=== PATIENT | male | born 1985 | race Caucasian/White ===

== ENCOUNTER 2024-01-09 10:02 | Outpatient (AMB) | payer OTHER, SELFPAY ==
--- NOTE | 2024-01-09 10:25 | A.OFFPC_ITS ---
Vital Signs 01/09/24 10:38 Height 5 ft 9 in Weight 202 lb BMI 29.8 BP 122/74 Blood Pressure Location Rt brachial Position Sitting Pulse 82 Pulse Source Pulse Oximeter Pulse Oximetry (%) 96 Oxygen Delivery Method Room Air Intake Visit Reasons: Skin peeling on forehead Intake Note: Pt is here today as a New Patient to [facility] care c/o skin peeling Allergies No Known Allergies Allergy (Verified 01/09/24 10:59) Medication List - Last Reconciled 01/09/24 by Zahra Calvillo MD No Known Home Meds Tobacco use date assessed: 01/09/24 Dental Screening Did you have a dental visit in the last 12 months?: Yes Did you have a dental problem in the last 6 months where you did not have access to dental care?: No Was dental information given to patient?: Patient has dentist HPI HPI Comments History of Present Illness Details 38-year-old male here today to establish care with new PCP and complaining of mildly pruritic rash on forehead just above the eyebrows, and in posterior scalp. He has been self treating with using saon-jzo-muxtaea head and shoulders shampoo, which he states has not helped. Has tried ketoconazole shampoo in the past which has helped but ran out . He also complains of a dry patch on his left elbow, which is nonpruritic. [facility] Medical History (Updated 01/10/24 @ 01:52 by Zahra Calvillo MD) Seborrheic dermatitis of scalp Surgical History (Updated 01/09/24 @ 11:10 by Zahra Calvillo MD) H/O vasectomy Family History (Updated 01/09/24 @ 11:09 by Zahra Calvillo MD) Maternal Grandmother Alzheimer's dementia Mother Mental health disorder Colon cancer, Onset Age: 60 Diabetes mellitus Essential hypertension Hypercholesteremia Hypothyroidism Depression Paternal Grandmother Alzheimer's dementia Father Diabetes mellitus Essential hypertension Social History Housing: House Patient Tobacco Use Status: Never used Tobacco e-Cigarette/Vaping Use: Never Used service: Yes Current occupational status: employed Cognitive needs: No Hearing needs: No Vision needs: Yes Questionnaire PHQ-9 Over the last 2 weeks, how often have you been bothered by any of the following problems? 1. Little interest or pleasure in doing things: not at all 2. Feeling down, depressed, or hopeless: not at all 3. Trouble falling or staying asleep, or sleeping too much: several days 4. Feeling tired or having little energy: several days 5. Poor appetite or overeating: not at all 6. Feeling bad about yourself - or that you are a failure or have let yourself or your family down: not at all 7. Trouble concentrating on things, such as reading the newspaper or watching television: not at all 8. Moving or speaking so slowly that other people could have noticed. Or the opposite - being so fidgety or restless that you have been moving around a lot more than usual: not at all 9. Thoughts that you would be better off or of hurting yourself in some way: not at all Total score: 2 Depression Screening Interpretation: Negative Depression Screening Done: Yes 05702 - PHQ-9 Billing: Yes Source: Developed by Drs. Robby Wisodm, Cleeste Do, Smith Davis and colleagues, with an educational jose from [employer]. Thrive Questionnaire Date Thrive assessed: 01/09/24 I am a: Patient What is your living situation today?: I have a steady place to live Within the past 12 months, did the food you bought not last and you didn't have the money to get more?: Never true Within the past 12 months, did you worry whether your food would run out before you got money to buy more?: Never true Do you have trouble paying for medicines?: No Do you have trouble getting transportation to medical appointments?: No Do you have trouble paying your heating and electricity bill?: No Do you have trouble taking care of your child, family member or friend?: No Do you have trouble with day-to-day activities such as bathing, preparing meals, shopping, managing finances, etc.?: No Are you currently unemployed and looking for a job?: No Are you interested in more education?: No THRIVE Score: 0 AUDIT C Alcohol Use Questionnaire (AUDIT-C) 1. How often do you have a drink containing alcohol?: Never Total Score: 0 JANETH-7 AMB Questionnaire JANETH-7 Date JANETH - 7 assessed: 01/09/24 Feeling nervous, anxious, or on edge: 0 = Not at all Not being able to stop or control worryin = Not at all Worrying too much about different things: 0 = Not at all Trouble relaxin = Not at all Being so restless that it is hard to sit still: 0 = Not at all Becoming easily annoyed or irritable: 0 = Not at all Feeling afraid as if something awful might happen: 0 = Not at all Total JANETH-7 score (0-4 normal; 5-9 mild; 10-14 moderate; 15-21 severe): 0 Source: Developed by Drs. Robby Wisdom, Celeste Do, Smith Davis and colleagues, with an educational jose from [employer]. JANETH-7 Assessment Billing JANETH-7 Assessment Tool: JANETH-7 Assessment 61224 Review of Systems Const Details: Alert oriented x3, no acute distress ambulatory normal gait, accompanied by Eyes Details: [facility] for his routine eye exam Reports requires corrective lenses ENT Reports no additional complaints Card Reports no additional complaints Resp Reports no additional complaints GI Reports no additional complaints Reports no additional complaints Musc Reports no additional complaints Skin/Breast Reports as per HPI Physical exam (Primary Care) Vital Signs: Last Vital Signs Pulse 82 01/09/24 10:38 BP 122/74 01/09/24 10:38 Pulse Ox 96 01/09/24 10:38 Oxygen Delivery Method Room Air 01/09/24 10:38 BMI result Body Mass Index 29.8 Tobacco/Smoking Status: Tobacco use Status Tobacco use date assessed 01/09/24 01/09/24 10:45 Patient Tobacco Use Status Never used Tobacco 01/09/24 10:45 e-Cigarette/Vaping Use Never Used 01/09/24 10:45 PHQ-9: PHQ-9 Score PHQ-9: Total score 2 01/09/24 11:11 Depression Screening Interpretation: Negative Thrive Assessment: Date of Thrive Assessment Date Thrive assessed 01/09/24 01/09/24 10:49 Advance Care Planning discussion: Completed/Scanned Date of discussion: 01/09/24 Who was present: Patient and Forms completed: Health Care Proxy Time spent: 16-45 minutes Actual minutes spent: 16 Const Other: Alert oriented x3, no acute distress noted ambulatory normal gait, present in room Orientation/consciousness: patient oriented x3 HENMT Head: Yes scalp lesion (Shiny scaly rash noted on scalp) Ears: external ears normal, TM's normal bilaterally and EAC's normal Face and sinus: Yes face symmetric Mouth: Normal oral and palatal mucosa present and moist mucous membranes Neck Neck: Yes full ROM, Yes no lymphadenopathy and Yes supple Resp Auscultation: clear to auscultation bilaterally Cardio Rate: regular rate Rhythm: regular rhythm Heart sounds: S1 normal heart sound present and S2 normal heart sound present GI Palpation (GI): Soft to palpation, nontender, no guarding and no masses Skin Other: Dry slightly hyperpigmented patch on left elbow, scaly patch noted above both eyebrows, and on pinna both ears Neuro General: patient oriented x3, gait normal, tone normal, moves all extremities and no focal motor deficits Assessment and Plan Assessment & Plan (1) Seborrheic dermatitis of scalp: Code(s): L21.9 - Seborrheic dermatitis, unspecified Plan: Prescription sent for ketoconazole 2% shampoo to apply topically to scalp twice a week as directed (2) Dry skin dermatitis: Code(s): L85.3 - Xerosis cutis Plan: Prescription sent for mometasone 0.1% to apply sparingly to affected area above eyebrows and on ear lobe, for no more than 10 days at a time, dermatology consult ordered (3) Advanced directives, counseling/discussion: Code(s): Z71.89 - Other specified counseling Plan: Initiated the conversation about Advanced Directives. Advanced Directives help patients prepare for current and future decisions about their medical treatment and place of care. Discussed with patient that it is a process where a patients current condition and prognosis are reviewed, their wishes for information regarding their illness are elicited, and likely medical dilemmas are presented and options discussed. Healthcare proxy form completed today. The form can be amended as needed, reviewed yearly and make changes as needed Orders: Referrals Dermatology Referral L21.9 - Seborrheic dermatitis, unspecified Medications: New ketoconazole 2% 1 appl topical 2XW 120 mL 0RF L21.9 - Seborrheic dermatitis, unspecified mometasone 0.1% 1 appl topical DAILY 10 days 15 grams 0RF skin irritation mometasone 0.1% 1 appl topical DAILY 10 days 15 grams 0RF skin irritation ketoconazole 2% 1 appl topical 2XW 120 mL 0RF L21.9 - Seborrheic dermatitis, unspecified Coding Level of Care Code New Pt Level 3 (89085) Diagnoses Seborrheic dermatitis of scalp L21.9 Dry skin dermatitis L85.3 Advanced directives, counseling/discussion Z71.89 Additional Codes Vital Signs *Quality* - Advance Care Planning discussion: Completed/Scanned ([id number]) Vital Signs *Quality* - Time spent: 16-45 minutes ([id number]) JANETH-7 Assessment Billing - JANETH-7 Assessment Tool: JANETH-7 Assessment 93145 ([id number])
[2024-01-09 10:38] VITALS: BP 122/74; PULSE 82; O2SAT 96; BMI 29.8
== END 2024-01-09 11:23 | disposition home or self-care (01) ==
PROVIDERS: PCP Internal Medicine; Visit Provider Internal Medicine
DX: L21.9 Seborrheic dermatitis, unspecified (principal); L85.3 Xerosis cutis; Z00.00 Encounter for general adult medical examination without abnormal findings
CPT/HCPCS: 1123F; 99203; 99497

== ENCOUNTER 2024-05-09 10:01 | Outpatient (AMB) | payer OTHER, SELFPAY ==
--- NOTE | 2024-05-09 10:03 | AM.OFFWIN_ITS ---
Intake Vital Signs 05/09/24 10:04 Height 5 ft 9 in Weight 195 lb BMI 28.8 BP 122/80 Blood Pressure Location Lt brachial Position Sitting Pulse 81 Pulse Source Pulse Oximeter Temp 98.3 F Temp Source Oral Pulse Oximetry (%) 98 Oxygen Delivery Method Room Air Intake Visit Reasons: EP RT foot injury/ortho referral Intake Note: pt c/o RT foot pain. Rolled ankle playing basketball on 04/17 Patient Tobacco Use Status: Never used Tobacco Allergies No Known Allergies Allergy (Verified 05/09/24 10:03) Do you need a note to return to daycare/school/sports/work: Yes HPI HPI Comments History of Present Illness Details He presents to office with R toe pain post injury on 04/17 Was playing basketball and injured it after fall with twist of foot Had xrays in ER which were negative for fx (went to hospital in [place]. Majority of edema was in ankle at that time) Diagnosed sprain and + crutches 2 week Once weight bearing he has pain in foot with extension of digits R foot (worse with great toe lateral movement) Tylenol prn Not seen since for injury/continual pain. Is in and wants to be checked before he has to complete PT for in June + remaining edema and pain to R foot dig its 1-3 + remaining bruising R 2nd toe PFSH Medical History (Updated 05/09/24 @ 10:16 by Colleen Chang PA-C) Seborrheic dermatitis of scalp Surgical History (Updated 01/09/24 @ 11:10 by Zahra Calvillo MD) H/O vasectomy Family History (Updated 01/09/24 @ 11:09 by Zahra Calvillo MD) Maternal Grandmother Alzheimer's dementia Mother Mental health disorder Colon cancer, Onset Age: 60 Diabetes mellitus Essential hypertension Hypercholesteremia Hypothyroidism Depression Paternal Grandmother Alzheimer's dementia Father Diabetes mellitus Essential hypertension Social History Housing: House Patient Tobacco Use Status: Never used Tobacco e-Cigarette/Vaping Use: Never Used service: Yes Current occupational status: employed Cognitive needs: No Hearing needs: No Vision needs: Yes Review of Systems Const Denies chills and Denies fever(s) Resp Denies cough Musc Reports arthralgias (digits R foot), Reports limited range of motion (tenderness with flexion digits R foot), Denies numbness and Denies tingling Skin/Breast Reports other (bruising R foot; 2nd digit) Neuro Denies numbness and Denies tingling Physical Exam Vital Signs: Last Vital Signs Temp 98.3 F 05/09/24 10:04 Pulse 81 05/09/24 10:04 BP 122/80 05/09/24 10:04 Pulse Ox 98 05/09/24 10:04 Oxygen Delivery Method Room Air 05/09/24 10:04 BMI result Body Mass Index 28.8 General: Non-toxic, NAD. Speaking full sentences. Skin: Warm dry throughout R foot: + edema R 2nd digit with ecchymosis at IP joint of digit. No other wounds of edema/ecchymosis noted Respiratory: No tachypnea Cardiac: RRR. DP pulse intact RLE MSK: No tenderness to palpation R ankle at medial/lateral malleoli or at achilles tendon. No plantar ttp. + ttp R 1st, 2nd and 3rd digit at IP joints. No metatarsal bone tenderness. Neurology: A/O. No aphasia or facial droop. Psych: Good mood and affect Assessment & Plan Assessment & Plan (1) Toe pain, right: Code(s): M79.674 - Pain in right toe(s) Plan: Pt seen and evaluated + deformity with edema/ecchymosis 2nd digit R foot will repeat xray in office for documentation as records from [place] unable to be seen. I viewed xray without fx. Will give ortho referral All questions answered at time of d/c Orders: Orders XR foot RT min 3V Today M79.674 - Pain in right toe(s) Referrals Orthopedics Referral M79.674 - Pain in right toe(s) Coding Level of Care Code Est Pt Level 3 (24729) Diagnoses Toe pain, right M79.674
[2024-05-09 10:04] VITALS: BP 122/80; PULSE 81; TEMP 36.8; O2SAT 98; BMI 28.8
--- OUTSIDE RECORDS SUMMARY | 2024-05-09 10:04 | XMS_ITS | Continuity of Care Document ---
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 Patient Date(s): 04/01/24 - 04/01/24 [facility] [address] [place] [address]- Encounter Diagnosis Ankle sprain(Discharge Diagnosis) - 04/01/24 Discharge Disposition: D/C Home Attending Physician: UMAIR JOHNSON MD Admitting Physician: UMAIR JOHNSON MD Allergies, Adverse Reactions, Alerts No Known Allergies Medications No Known Medications Results Radiology Reports * Exam Date Time Procedure Performing Provider Status 04/01/24 9:01 PM 04/01/24 9:01 PM 04/01/24 9:01 PM Tibia & Fibula, Right, AP & Lat Ankle, Right, 3 or> Views Foot, Right, 3 Or> Views Ray Tech, Shantell M; Ray Tech, Shantell M; Ray Tech, Shantell M; Auth (Verified) Auth (Verified) Auth (Verified) Notes: (Tibia & Fibula, Right, AP & Lat) Reason For Exam: Leg pain injury (Ankle, Right, 3 or> Views) Reason For Exam: Ankle injury (Foot, Right, 3 Or> Views) Reason For Exam: Foot pain injury Results Indication: Injury with right foot, ankle, left leg pain. EXAM: 2 views of the right tibia/fibular and 3 views of right foot and ankle COMPARISON: None. Findings/impression: No acute osseous, articular, or soft tissue abnormality. The joint spaces are preserved without osteoarthritic change. [id number] . Authenticated By: JAMES RAMIRES MD 04/01/2024 21:28 FINAL REPORT Vital Signs Most recent to oldest [Reference Range]: 1 Height 69 in (04/01/24 9:02 PM) Dosing Weight 87.98 kg (04/01/24 9:04 PM) BMI Calculation 28.65 (04/01/24 9:02 PM) Admission Weight lbs 194 lb (04/01/24 9:02 PM) Blood Pressure [95-159/60-90 mmHg] 126/9 3mmHg (04/01/24 8:54 PM) Respiratory Rate [12-30 rpm] 18 rpm (04/01/24 8:54 PM) Temperature Temporal Artery [97.2-100 De gF] 98.8 DegF (04/01/24 8:54 PM) SpO2 [90-100 %] 96 % (04/01/24 8:54 PM) O2 Delivery Room Air (04/01/24 8:54 PM) Social History Social History Type Response Sex Male Hospital Discharge Instructions Patient Education 04/01/2024 23:31:13 Ankle Sprain Ankle Sprain An ankle sprain is a stretch or tear in a ligament in the ankle. Ligaments are tissues that connectbones to each other. The two most common types of ankle sprains are: ??? Inversion sprain. This happens when the foot turns inward and the ankle rolls outward. It affects the ligament on the outside of the foot (lateral ligament). ??? Eversion sprain. This happens when the foot turns outward and the ankle rolls inward. It affects the ligament on the inner side of the foot (medial ligament). What are the causes? An ankle sprain is often caused by rolling or twisting the ankle by accident. What increases the risk? You are more likely to get an ankle sprain if you play sports. What are the signs or symptoms? Symptoms of an ankle sprain include: ??? Pain in your ankle. ??? Swelling. ??? Bruising. Bruises may form right after you sprain your ankle or 1???2 days later. ??? Trouble standing or walking. This includes trouble turning or changing directions. How is this diagnosed? An ankle sprain is diagnosed with a physical exam. Your health care provider will press on parts ofyour foot and ankle and try to move them in certain ways. You may also have X-rays taken. These may be done to see how severe the sprain is and to check for broken bones. How is this treated? An ankle sprain may be treated with: ??? A brace or splint. This is used to keep the ankle from moving until it heals. ??? An elastic bandage (dressing). This is used to support the ankle. ??? Crutches. ??? Pain medicine. ??? Surgery. This may be needed if the sprain is severe. ??? Physical therapy. This may help to improve the range of motion in the ankle. Follow these instructions at home: If you have a removable brace or a splint: ??? Wear the brace or splint as told by your provider. Remove it only as told by your provider. ??? Check the skin around the brace or splint every day. Tell your provider about any concerns. ??? Loosen the brace or splint if your toes tingle, become numb, or turn cold and blue. ??? Keep the brace or splint clean. ??? If the brace or splint is not waterproof: ??? Do not let it get wet. ??? Cover it with a watertight covering when you take a bath or a shower. If you have an elastic dressing: ??? Take the dressing off to shower or bathe. ??? If the dressing feels too tight, adjust it to make it more comfortable. ??? Loosen the dressing if your foot tingles, becomes numb, or turns cold and blue. Managing pain, stiffness, and swelling ??? If told, put ice on the affected area. ??? If you have a removable brace or splint, remove it as told by your provider. ??? Put ice in a plastic bag. ??? Place a towel between your skin and the bag. ??? Leave the ice on for 20 minutes, 2???3 times a day. ??? Remove the ice if your skin turns bright red. This is very important. If you cannot feel pain, heat, or cold, you have a greater risk of damage to the area. ??? If your skin turns bright red, remove the ice right away to prevent skin damage. The risk of damage is higher if you cannot feel pain, heat, or cold. ??? Move your toes often to reduce stiffness and swelling. ??? For 2???3 days, raise (elevate) your ankle above the level of your heart while you are sitting or lying down. General instructions ??? Take ejht-lcs-maxzchm and prescription medicines only as told by your provider. ??? Do not use any products that contain nicotine or tobacco. These products include cigarettes, chewing tobacco, and vaping devices, such as e-cigarettes. If you need help quitting, ask your provider. ??? Rest your ankle. ??? Do not use your ankle to support your body weight until your provider says that you can. Use crutches as told by your provider. ??? Ask your provider when it is safe to drive if you have a brace or splint on your ankle. Contact a health care provider if: ??? You have bruising or swelling that get worse all of a sudden. ??? Your pain does not get better with medicine. Get help right away if: ??? Your foot or toes become numb or blue. ??? You have severe pain that gets worse. This information is not intended to replace advice given to you by your health care provider. Make sure you discuss any questions you have with your health care provider. Document Revised: 05/18/2023 Document Reviewed: 05/18/2023 Else[employer] Patient Education ?? 2023 [employer] Follow Up Care 04/01/2024 20:38:59 With:ZO SINGH, GAURI Joaquin Address: [facility] [address] [place] [address]- When: Unknown Comments:Ice, elevate. ??If you are still having pain by Tuesday or call the??orthopedist to get an appointment for the following week.?? Motrin/Tylenol for pain. Patient Care team information Care Team Personnel Name: ANNABELING, PCP Member Role: Primary Care Physician
== END 2024-05-09 10:41 | disposition home or self-care (01) ==
PROVIDERS: PCP Internal Medicine; Visit Provider Physician Assistant
DX: M79.674 Pain in right toe(s) (principal)
CPT/HCPCS: 99213

== ENCOUNTER 2024-05-09 10:20 | Outpatient (REF) | payer OTHER, SELFPAY ==
--- NOTE | ~2024-05-09 | XR_ITS ---
EXAMINATION: XR FOOT, RIGHT CLINICAL INFORMATION: Right second toe pain. COMPARISON: None available. TECHNIQUE: AP, lateral, and oblique views of the right foot. FINDINGS: Alignment is anatomic. Joint spaces are maintained. No displaced fracture or dislocation. No focal radiographic soft tissue swelling. XR/XR foot RT min 3V IMPRESSION: No acute abnormality. Electronically signed by: Jimmy Oneil MD 05/09/2024 11:50 AM EDT
== END 2024-05-09 10:21 | disposition home or self-care (01) ==
LOC: HO.HMGCX 10:20
PROVIDERS: Visit Provider Physician Assistant
DX: M79.674 Pain in right toe(s) (principal)
CPT/HCPCS: 73630